=== PATIENT | female | born 1955 | race Caucasian/White ===

== ENCOUNTER → 2020-08-26 | Outpatient (CLI) | payer OTHER | END | disposition home or self-care (01) | LOC: TOM 09:15 | DX: Z12.11 Encounter for screening for malignant neoplasm of colon (principal) ==

== ENCOUNTER 2024-12-21 06:49 | Day surgery (SDC) | payer OTHER ==
[2024-12-16 09:39] LABS: INR 1.05; PARTIAL THROMBOPLASTIN TIME 24.7 SECONDS (22.0-34.0); PROTHROMBIN TIME 11.4 SECONDS (9.0-11.5)
[2024-12-16 09:40] LABS: HEMATOCRIT 27.9 % (36.0-45.00); MEAN CELL VOLUME 86.5 fL (80.00-100.00); MEAN CORPUSCULAR HGB CONC 34.5 g/dl (32.0-36.0); PLATELET COUNT 222 K/uL (150-450); RED BLOOD COUNT 3.22 M/uL (4.00-6.00); RED CELL DISTRIBUTION WIDTH 14.3 % (11.5-14.5)
[2024-12-16 09:48] LABS: HEMOGLOBIN 9.6 g/dL (12.0-15.00); MEAN CORPUSCULAR HEMOGLOBIN 29.8 pg (27.00-32.0)
[2024-12-16 10:30] LABS: ALBUMIN 3.7 gm/dL (3.4-5.0); BILIRUBIN TOTAL 0.55 mg/dL (0.3-1.2); CALCIUM 9.5 mg/dL (8.5-10.1); CREATININE SERUM 1.02 mg/dL (0.55-1.02); GFR 53.57; GLOBULINA 3.8 G/DL (2.4-3.5); POTASSIUM 4.34 mEq/L (3.5-5.1); TOTAL PROTEIN 7.5 gm/dL (6.4-8.2)
[~2024-12-21 06:49] MED LIST: ADULT LOW DOSE81 M1; CARDURA; IMDUR; LIPITOR; METFORMIN; NORVASC
== END 2024-12-21 20:25 | disposition home or self-care (01) ==
LOC: CIR.AMB 06:49
PROVIDERS: ATTEND Internal Medicine
DX: K22.81 Esophageal polyp (principal); K22.89 Other specified disease of esophagus; K29.50 Unspecified chronic gastritis without bleeding; Z91.014 Allergy to mammalian meats; Z91.013 Allergy to seafood; I10 Essential (primary) hypertension; E11.9 Type 2 diabetes mellitus without complications